=== PATIENT | female | born 1995 ===

== ENCOUNTER 2020-07-06 16:24 | Outpatient (CLI) | payer OTHER | END 2020-07-06 18:00 | disposition home or self-care (01) | LOC: PPH VACUNA 16:24 | DX: Z23 Encounter for immunization (principal) ==

== ENCOUNTER → 2020-07-10 09:01 | Outpatient (CLI) | payer OTHER | END | disposition home or self-care (01) | LOC: LAB 09:01 | PROVIDERS: ATTEND Chiropractor | DX: R73.09 Other abnormal glucose (principal); E78.49 Other hyperlipidemia; E07.89 Other specified disorders of thyroid; M32.10 Systemic lupus erythematosus, organ or system involvement unspecified; M32.8 Other forms of systemic lupus erythematosus; M54.2 Cervicalgia; M54.6 Pain in thoracic spine; M54.5 Low back pain ==

== ENCOUNTER → 2020-10-11 11:12 | Outpatient (CLI) | payer OTHER | END | disposition home or self-care (01) | LOC: LAB 10:51 | PROVIDERS: ATTEND Obstetrics & Gynecology | DX: D64.89 Other specified anemias (principal); N39.0 Urinary tract infection, site not specified; R79.1 Abnormal coagulation profile; R79.89 Other specified abnormal findings of blood chemistry; N91.0 Primary amenorrhea; R05 Cough; Z20.828 Contact with and (suspected) exposure to other viral communicable diseases ==